=== PATIENT | female | born 1990 | race Caucasian/White ===

== ENCOUNTER 2023-09-17 07:35 | Inpatient (IN) | payer OTHER ==
[2023-09-17] MEDS: ELECTROLYTE-148 SOLN 1,000 ML IV SCH (09:00)
[2023-09-17 10:04] LABS: BASO % 0.4 % (0-2.0); EOS % 1.5 % (0-4.5); HEMATOCRIT 31.4 % (32.4-45.2); HEMOGLOBIN 10.7 GM/dL (10.7-15.3); LYMPH % 24.2 % (8-40); MCH 30.6 pg (25.7-33.7); MCHC 34.1 g/dl (32.0-36.0); MEAN CELL VOLUME 89.8 fl (80-96); MEAN PLT VOLUME 9.2 fl (7.5-11.1); MONO % 8.7 % (3.8-10.2); NEUT % 65.2 % (42.8-82.8); PLATELET COUNT 231 10^3/uL (134-434); RBC 3.49 M/mm3 (3.60-5.2); WHITE BLOOD COUNT 10.9 K/mm3 (4.0-10.0)
[2023-09-17 10:05] LABS: INR 0.98 (0.83-1.09); PROTHROMBIN TIME (PATIENT) 11.4 SEC (9.7-13.0)
[2023-09-17 10:09] LABS: ACTIVATED PTT 28.9 SECONDS (25.2-36.5)
[2023-09-17 10:17] VITALS: BMI 26.6
[2023-09-17 10:21] LABS: BLOOD UREA NITROGEN 11.1 mg/dL (7-18)
[2023-09-17 10:24] LABS: CREATININE 0.6 mg/dL (0.55-1.3)
[2023-09-17] MEDS ORDERED: OXYTOCIN 30 UNITS in 0.9% NS 30 UNIT/500 ML INFUS.BAG IVPB ONE (10:24)
[2023-09-17] MEDS: OXYTOCIN 30 UNITS in 0.9% NS 30 UNIT/500 ML INFUS.BAG IVPB SCH (10:30)
[2023-09-17] MEDS ORDERED: CLINDAMYCIN 900 MG PREMIX IVPB 900 MG/50 ML BAG IVPB SCH (11:00)
[2023-09-17] MEDS ORDERED: CLINDAMYCIN 900 MG PREMIX IVPB 900 MG/50 ML BAG IVPB ONE (11:39)
[2023-09-17] MEDS ORDERED: FENTANYL/BUPIVACAINE/NS/PF - PCEA - 50 ML DISP.SYRIN EP ONE (17:11)
[2023-09-17] MEDS ORDERED: OXYTOCIN 20 UNITS in 0.9% NS 20 UNIT/1,000 ML INFUS.BAG IV ONE (19:18)
[2023-09-17] MEDS ORDERED: BISACODYL 10 MG SUPP.RECT RC PRN (19:59)
[2023-09-17] MEDS ORDERED: WITCH HAZEL 50% (TUCKS) 40 PAD/JAR PAD TP PRN (19:59)
[2023-09-17] MEDS ORDERED: oxyCODONE HCL 5 MG TABLET PO PRN (19:59)
[2023-09-17] MEDS ORDERED: BENZOCAINE 20% 57 GM BOTTLE TP PRN (19:59)
[2023-09-17] MEDS ORDERED: METHYLERGONOVINE MALEATE 0.2 MG/1 ML AMP IM PRN (19:59)
[2023-09-17] MEDS ORDERED: BENZOCAINE 28 GM HEMORRHOIDAL OINTMENT TP PRN (19:59)
[2023-09-17] MEDS ORDERED: ACETAMINOPHEN 325 MG TABLET (FP) PO PRN (19:59)
[2023-09-17] MEDS ORDERED: OXYTOCIN 20 UNITS in 0.9% NS 20 UNIT/1,000 ML INFUS.BAG IV SCH (20:00)
[2023-09-17] MEDS: IBUPROFEN 600 MG TABLET (FP) PO PRN (20:00)
[2023-09-17] MEDS ORDERED: IBUPROFEN 600 MG TABLET (FP) PO ONE (20:07)
[2023-09-18] MEDS: IBUPROFEN 600 MG TABLET (FP) PO PRN ×2 (06:09→20:06)
[2023-09-18 08:11] LABS: BASO % 0.2 % (0-2.0); EOS % 0.9 % (0-4.5); HEMATOCRIT 28.6 % (32.4-45.2); HEMOGLOBIN 9.6 GM/dL (10.7-15.3); LYMPH % 14.8 % (8-40); MCHC 33.5 g/dl (32.0-36.0); MEAN CELL VOLUME 89.6 fl (80-96); MEAN PLT VOLUME 9.2 fl (7.5-11.1); MONO % 6.7 % (3.8-10.2); NEUT % 77.4 % (42.8-82.8); PLATELET COUNT 208 10^3/uL (134-434); RBC 3.19 M/mm3 (3.60-5.2); RDW 13.3 % (11.6-15.6); WHITE BLOOD COUNT 15.1 K/mm3 (4.0-10.0)
[2023-09-18] MEDS: OXYTOCIN 30 UNITS in 0.9% NS 30 UNIT/500 ML INFUS.BAG IVPB SCH (20:47)
[2023-09-18] MEDS: ELECTROLYTE-148 SOLN 1,000 ML IV SCH (20:47)
[2023-09-18] MEDS ORDERED: SENNOSIDES/DOCUSATE COMBO (SENNA PLUS) TABLET (UD) PO PRN (22:00)
[2023-09-19 10:38] VITALS: BP 110/66; PULSE 73; RESP 17; TEMP 98.3
== END 2023-09-19 12:55 | disposition home or self-care (01) | DRG 807 ==
LOC: JLDR 07:35 → J3W 21:32
PROVIDERS: ADMIT Specialist; ATTEND Specialist
PROC: 10E0XZZ Delivery of Products of Conception, External Approach (ICD-10-PCS; principal; 2023-09-17)
PROC: 10907ZC Drainage of Amniotic Fluid, Therapeutic from Products of Conception, Via Natural or Artificial Opening (ICD-10-PCS; 2023-09-17)
DX: O70.0 First degree perineal laceration during delivery (principal); Z37.0 Single live birth; O99.824 Streptococcus B carrier state complicating childbirth; Z3A.40 40 weeks gestation of pregnancy
CPT/HCPCS: 36415; 80048; 85025; 85610; 85730; 86780; 86850; 86900; 86901